=== PATIENT | male | born 1965 | race Caucasian/White ===

== ENCOUNTER 2017-10-23 11:42 | Day surgery (SDC) | payer MEDICARE, OTHER ==
[~2017-10-23] VITALS: Ht 182.9 cm; Wt 74.6 kg
[~2017-10-23 11:42] MED LIST: AMOX500 PO; ASPI81CH; ATOR40TA; CHOLESTERAL MED; FENO145; HYDACE5 PO; HYDACE7.5 PO; IBUP600; IBUP800 PO; METPHE5 PO; NAPR500 PO
[2017-10-23] MEDS ORDERED: DICL25ER (12:34)
[2017-10-23] MEDS ORDERED: IBUP800 (12:35)
== END 2017-10-23 15:08 | disposition home or self-care (01) ==
LOC: ORSCSDS 11:42
PROVIDERS: Internal Medicine Gastroenterology
PROC: 0DBN8ZX Excision of Sigmoid Colon, Via Natural or Artificial Opening Endoscopic, Diagnostic (ICD-10-PCS; principal; 2017-10-23 13:00)
PROC: 0DBM8ZX Excision of Descending Colon, Via Natural or Artificial Opening Endoscopic, Diagnostic (ICD-10-PCS; principal; 2017-10-23 13:00)
PROC: 0DBL8ZX Excision of Transverse Colon, Via Natural or Artificial Opening Endoscopic, Diagnostic (ICD-10-PCS; principal; 2017-10-23 13:00)
DX: Z12.11 Encounter for screening for malignant neoplasm of colon (principal); D12.4 Benign neoplasm of descending colon; D12.3 Benign neoplasm of transverse colon; K63.5 Polyp of colon; K64.8 Other hemorrhoids; K57.30 Diverticulosis of large intestine without perforation or abscess without bleeding; Z86.010 Personal history of colon polyps; Z80.0 Family history of malignant neoplasm of digestive organs; E78.5 Hyperlipidemia, unspecified; F17.210 Nicotine dependence, cigarettes, uncomplicated; Z79.82 Long term (current) use of aspirin; Z79.899 Other long term (current) drug therapy
CPT/HCPCS: 88305

== ENCOUNTER 2017-11-03 08:48 | Day surgery (SDC) | payer MEDICARE, OTHER ==
[~2017-11-03] VITALS: Ht 182.9 cm; Wt 74.5 kg
[~2017-11-03 08:48] MED LIST changes: +DICL25ER; +IBUP800
== END 2017-11-03 13:15 | disposition home or self-care (01) ==
LOC: ORSCSDS 08:48
PROVIDERS: Orthopaedic Surgery
PROC: 0RBJ4ZZ Excision of Right Shoulder Joint, Percutaneous Endoscopic Approach (ICD-10-PCS; principal; 2017-11-03 10:00)
PROC: 0RSJXZZ Reposition Right Shoulder Joint, External Approach (ICD-10-PCS; principal; 2017-11-03 10:00)
DX: M75.111 Incomplete rotator cuff tear or rupture of right shoulder, not specified as traumatic (principal); M75.41 Impingement syndrome of right shoulder; M65.811 Other synovitis and tenosynovitis, right shoulder; E78.5 Hyperlipidemia, unspecified; F17.210 Nicotine dependence, cigarettes, uncomplicated; Z79.82 Long term (current) use of aspirin; Z79.899 Other long term (current) drug therapy
CPT/HCPCS: J0690; J1100; J1170; J2250; J2405; J3010; J7120

== ENCOUNTER 2018-10-09 16:48 | Emergency (ER) | payer OTHER, MEDICARE ==
[~2018-10-09] VITALS: Ht 175.3 cm; Wt 79.4 kg
[2018-10-09] MEDS ORDERED: ATOR40TA PO (16:59)
[2018-10-09] MEDS ORDERED: Percocet 5-3251 EACH PO (16:59)
== END 2018-10-09 18:05 | disposition home or self-care (01) ==
LOC: ER 16:48
DX: S20.212A Contusion of left front wall of thorax, initial encounter (principal); V49.9XXA Car occupant (driver) (passenger) injured in unspecified traffic accident, initial encounter; Z79.899 Other long term (current) drug therapy; F17.200 Nicotine dependence, unspecified, uncomplicated
CPT/HCPCS: 71101; 99283-25

== ENCOUNTER 2018-12-23 18:09 | Emergency (ER) | payer MEDICARE, OTHER ==
[~2018-12-23] VITALS: Ht 182.9 cm; Wt 74.8 kg
[~2018-12-23 18:09] MED LIST changes: +ATOR40TA PO; +Percocet 5-3251 EACH PO
[2018-12-23 19:12] LABS: BASOPHILS ABSOLUTE AUTO 0.07 K/mm3 (0.00-0.23); BASOPHILS PERCENT AUTO 1 % (0-2); EOSINOPHILS ABSOLUTE AUTO 0.28 K/mm3 (0.00-0.68); EOSINOPHILS PERCENT AUTO 3 % (0-6); Hematocrit 44.4 % (37.0-53.0); Hemoglobin 14.4 g/dL (13.5-17.5); IMMATURE GRAN ABSOLUTE AUTO 0.12 K/mm3 (0.00-0.10); IMMATURE GRAN PERCENT AUTO 1 % (0-1); LYMPHOCYTES ABSOLUTE AUTO 3.03 K/mm3 (0.84-5.20); LYMPHOCYTES PERCENT AUTO 27 % (21-46); MONOCYTES ABSOLUTE AUTO 0.77 K/mm3 (0.16-1.47); MONOCYTES PERCENT AUTO 7 % (4-13); Mean Corpuscular HGB 29.9 pg (26.0-34.0); Mean Corpuscular HGB Conc 32.4 g/dL (31.5-36.5); Mean Corpuscular Volume 92 fL (80-100); Mean Platelet Volume 10.9 fL (9.1-12.4); NEUTROPHILS ABSOLUTE AUTO 7.12 K/mm3 (1.96-9.15); NEUTROPHILS PERCENT AUTO 62 % (41-73); Platelet Count 237 K/mm3 (150-400); RDW Coefficient Variation 13.5 % (11.7-14.2); Red Blood Cell Count 4.81 M/mm3 (4.30-5.90); White Blood Cell Count 11.39 K/mm3 (4.00-11.30)
[2018-12-23 19:42] LABS: Alanine Aminotransfer (ALT/SGP 80 U/L (12-78); Albumin/Globulin Ratio 1.3 (0.8-1.8); Alk Phos 142 U/L (50-136); Anion Gap 8 mmol/L (6-16); Aspartate Aminotrans (AST/SGOT 63 U/L (12-37); Bilirubin, Total 0.3 mg/dL (0.1-1.0); Blood Urea Nitrogen 13 mg/dL (8-24); Bun/Creatinine Ratio 15.2 (12.0-20.0); CO2, Blood 23 mmol/L (21-32); Calcium, Blood 9.1 mg/dL (8.5-10.1); Chloride, Blood 112 mmol/L (98-108); Creatinine, Blood 0.86 mg/dL (0.60-1.20); Globulin, Blood 3.1 g/dL (2.2-4.0); Glomerular Filtration Rate >60 (60-); Glucose, Blood 122 mg/dL (70-99); Sodium, Blood 143 mmol/L (136-145); Total Protein, Blood 7.1 g/dL (6.4-8.2); Troponin I <0.015 ng/mL (0.000-0.040)
== END 2018-12-23 21:00 | disposition home or self-care (01) ==
LOC: ER 18:09
PROVIDERS: Physician Assistant
DX: K44.9 Diaphragmatic hernia without obstruction or gangrene (principal); J44.9 Chronic obstructive pulmonary disease, unspecified; E78.00 Pure hypercholesterolemia, unspecified; M25.569 Pain in unspecified knee; G89.29 Other chronic pain; F17.200 Nicotine dependence, unspecified, uncomplicated; Z79.899 Other long term (current) drug therapy
CPT/HCPCS: 71046; 74176; 80053; 83690; 84484; 85025; 85379; 93005; 93010; 99285-25

== ENCOUNTER 2020-11-16 09:54 | Day surgery (SDC) | payer MEDICARE, OTHER ==
[~2020-11-16] VITALS: Ht 182.9 cm; Wt 74.3 kg
[~2020-11-16 09:54] MED LIST changes: +ALBU90OI INH; +IBUP200 PO; +Norco 10-325 T1 EACH PO; +SPIRIVA RESPIMAT4 G3 INH
== END 2020-11-16 12:30 | disposition home or self-care (01) ==
LOC: ORSCSDS 09:54
PROVIDERS: Internal Medicine Gastroenterology
PROC: 0DBL8ZX Excision of Transverse Colon, Via Natural or Artificial Opening Endoscopic, Diagnostic (ICD-10-PCS; principal; 2020-11-16 11:00)
PROC: 0DBP8ZX Excision of Rectum, Via Natural or Artificial Opening Endoscopic, Diagnostic (ICD-10-PCS; principal; 2020-11-16 11:00)
DX: Z12.11 Encounter for screening for malignant neoplasm of colon (principal); Z86.010 Personal history of colon polyps; Z80.0 Family history of malignant neoplasm of digestive organs; D12.3 Benign neoplasm of transverse colon; K63.5 Polyp of colon; K62.1 Rectal polyp; K64.8 Other hemorrhoids; K57.30 Diverticulosis of large intestine without perforation or abscess without bleeding; F17.210 Nicotine dependence, cigarettes, uncomplicated; Z79.899 Other long term (current) drug therapy
CPT/HCPCS: 88305; J2704; J7120

== ENCOUNTER 2023-08-01 17:05 | Emergency (ER) | payer MEDICARE, OTHER ==
[~2023-08-01] VITALS: Ht 180.3 cm; Wt 79.4 kg
[2023-08-01 17:21] VITALS: BP 133/94
== END 2023-08-01 18:10 | disposition home or self-care (01) ==
LOC: ER 17:05
DX: S16.1XXA Strain of muscle, fascia and tendon at neck level, initial encounter (principal); S39.012A Strain of muscle, fascia and tendon of lower back, initial encounter; S13.9XXA Sprain of joints and ligaments of unspecified parts of neck, initial encounter; S70.01XA Contusion of right hip, initial encounter; W18.30XA Fall on same level, unspecified, initial encounter; W17.89XA Other fall from one level to another, initial encounter; Z79.899 Other long term (current) drug therapy; J44.9 Chronic obstructive pulmonary disease, unspecified; E78.00 Pure hypercholesterolemia, unspecified; F17.200 Nicotine dependence, unspecified, uncomplicated
CPT/HCPCS: 72100; 99283-25

== ENCOUNTER 2023-08-13 06:56 | Day surgery (SDC) | payer MEDICARE, OTHER ==
[~2023-08-13] VITALS: Ht 182.9 cm; Wt 77.4 kg
[~2023-08-13 06:56] MED LIST changes: +Lactated Ringer's 1,000 ML IV ONE
[2023-08-13] MEDS ORDERED: Ropivacaine 0.5% HCl/Pf 5 MG/ML 20ML VIAL ONE (07:02)
[2023-08-13] MEDS ORDERED: EPINEPhrine HCl 1 MG/ML 1ML Amp ONE ×2 (07:02→08:31)
[2023-08-13] MEDS ORDERED: CeFAZolin Sodium 2,000 MG VIAL ONE (07:55)
[2023-08-13] MEDS ORDERED: NS 50 ML IV ONE (07:56)
[2023-08-13] MEDS ORDERED: Lactated Ringer's 1,000 ML IV ONE ×2 (07:57→09:20)
[2023-08-13] MEDS ORDERED: OXYC15ER PO (08:05)
[2023-08-13] MEDS ORDERED: Bupivacaine 0.5% HCl 5 MG/ML 30MLVIAL ONE (08:31)
[2023-08-13] MEDS ORDERED: Dexamethasone Sod Phos 10 MG/ML 1ML VIAL ONE (08:31)
[2023-08-13] MEDS ORDERED: Midazolam HCl 1MG / ML 2ML Vial ONE (08:31)
[2023-08-13] MEDS ORDERED: propofoL 40 ML IV ONE (08:50)
--- NOTE | 2023-08-13 08:50 | NUR ---
08[facility]13/23 0850 [facility] BLOCK COMPLETED BY DR MOYER, TIMEOUT COMPLETED PRIOR TO BLOCK PROCEDURE
[2023-08-13] MEDS ORDERED: Phenylephrine HCl 10mg/ml 1 ml Vial ONE (09:16)
--- NOTE | 2023-08-13 09:28 | NUR ---
08/13/23 0928 Urmila Kaur 20 MLS ROPIVACAINE 0.5% MIXED AND VERIFIED W/ EPI 0.1MG (1MG/ML) TO MAKE ROPIVACAINE 0.5% W/ EPI, 1:200,000
[2023-08-13] MEDS ORDERED: Ondansetron HCl 2 MG / ML 2ML Vial ONE (09:50)
[2023-08-13 10:42] VITALS: BP 118/82
--- NOTE | 2023-08-13 11:53 | NUR ---
08/13/23 1153 Philipp Hooper PT MAINTAINING O2 90-93% WITH BREIF DROPS TO 88-89% UPON ARRIVAL IN SDU. PT DENIED DIZZINESS, SOB, AND OTHER RESPIRATORY SYMPTOMS; AND NONE WERE OBSERVED. HE WAS IMMEDIATELY PLACED ON SUPPLEMENTAL O2 (SEE VITAL SIGNS COMMENTS). HE WAS MOVED TO RECLINER AND PULSE OXYMETERY WAS SWITCHED FROM FINGER TO TOE AT 1045. PT MAINTAINED O2 >94% AFTER MOVE TO RECLINER, EVEN AFTER BEING TITRATED TO RA. PT EXPRESSED READINESS TO RETURN HOME PRIOR TO D/C. HE APPEARED TALKATIVE, RELAXED, AND PLEASANT.
== END 2023-08-13 11:40 | disposition home or self-care (01) ==
LOC: ORSCSDS 06:56
PROVIDERS: Orthopaedic Surgery
PROC: 0RNK4ZZ Release Left Shoulder Joint, Percutaneous Endoscopic Approach (ICD-10-PCS; principal; 2023-08-13 08:30)
DX: M75.02 Adhesive capsulitis of left shoulder (principal); J44.9 Chronic obstructive pulmonary disease, unspecified; F17.210 Nicotine dependence, cigarettes, uncomplicated; Z79.899 Other long term (current) drug therapy
CPT/HCPCS: J0171; J0690; J1100; J2250; J2371; J2405; J2704; J2795; J7120